=== PATIENT | male | born 2000 | race Caucasian/White ===

== ENCOUNTER 2019-10-09 08:07 | Emergency (ER) | payer OTHER, SELFPAY ==
[~2019-10-09] VITALS: Ht 180.3 cm; Wt 84.1 kg
[2019-10-09 08:08] VITALS: BP 141/84
--- NOTE | 2019-10-09 08:56 | REP ---
Left ribs five views: There is no rib fracture or other rib abnormality. PA chest: There are no comparisons. There is no pneumothorax, hemothorax or pulmonary contusion. Lung pascual are clear. Cardiac size is normal. The gretchen, mediastinum, skeletal structures are unremarkable. Impression: Negative PA chest. Electronically Signed by Garret José MD 10/09/2019 08:47 A
[2019-10-09] MEDS ORDERED: IBUPROFEN 800 MG TAB PO ONE (09:45)
[2019-10-09] MEDS ORDERED: ACETAMINOPHEN 325 MG TAB PO ONE (09:45)
== END 2019-10-09 09:48 | disposition home or self-care (01) ==
LOC: M ED 08:07
DX: S20.212A Contusion of left front wall of thorax, initial encounter (principal); V49.49XA Driver injured in collision with other motor vehicles in traffic accident, initial encounter; Y92.410 Unspecified street and highway as the place of occurrence of the external cause